=== PATIENT | female | born 1960 | race Caucasian/White ===

== ENCOUNTER 2017-10-26 14:36 | Outpatient (CLI) | payer BC ==
--- NOTE | 2017-10-26 15:48 | MMO ---
BILATERAL SCREENING MAMMOGRAM: Date: 10/26/17 COMPARISON: 09/13/16, 06/12/15, 08/12/13. HISTORY: Annual screening exam. This patient's mammogram was interpreted with the assistance of computer-aided detection. FINDINGS: Scattered fibroglandular changes of both breasts are noted. Calcifications in both breasts appear sta ble. Biopsy clip is seen on the right and there is an intramammary node on the left. IMPRESSION: BIRADS 2: Benign Finding(s) POS: JAS
== END 2017-10-26 14:37 | disposition home or self-care (01) ==
LOC: SCSMAMMO 14:36
PROVIDERS: ATTEND Family Medicine
DX: Z12.31 Encounter for screening mammogram for malignant neoplasm of breast (principal)
CPT/HCPCS: 77067

== ENCOUNTER 2017-12-06 12:23 | Outpatient (CLI) | payer BC ==
--- NOTE | 2017-12-06 15:59 | RAD ---
ESOPHAGRAM: 12/06/17 HISTORY: Dysphagia. Patient has a lap band. Exam requested to evaluate adequate position and rule out esophage al dilatation. FINDINGS: A single contrast esophagram was performed with thin barium. The lap band is in appropriate position. Swallowing was grossly normal. There is an unobstructed flow of contrast through the esophagus into the stomach. No reflux was demonstrated during the exam. IMPRESSION: Unremarkable exam. POS: JAS
== END 2017-12-06 12:24 | disposition home or self-care (01) ==
LOC: RAD 12:23
PROVIDERS: ATTEND Surgery
DX: R13.10 Dysphagia, unspecified (principal)
CPT/HCPCS: 74220; 97802

== ENCOUNTER 2021-02-10 15:12 | Outpatient (CLI) | payer OTHER | END 2021-02-10 15:13 | disposition home or self-care (01) | LOC: BICMAMMO 15:12 | PROVIDERS: ATTEND Family Medicine | DX: Z12.31 Encounter for screening mammogram for malignant neoplasm of breast (principal); Z91.89 Other specified personal risk factors, not elsewhere classified; Z80.3 Family history of malignant neoplasm of breast | CPT/HCPCS: 77063; 77067 ==